=== PATIENT | female | born 1995 | race Hispanic/Latino ===

== ENCOUNTER 2018-07-08 16:10 | Inpatient (IN) | payer OTHER, SELFPAY ==
[2018-07-08 16:52] VITALS: BMI 31.1
[2018-07-08 17:39] LABS: Amnisure Internal Control QC ACCEPTABLE (ACCEPTABLE); Amnisure Test No Membranes Rupture (No Rupture)
--- NOTE | 2018-07-08 19:34 | PDOC.LDHP ---
Labor and Delivery H&P Chief complaint: contractions HPI: 37 wk w increasing ctx. 2 cm yesterday in calcium Current gestational age (weeks): 37 Due date: 07/29/18 Dating criteria: last menstrual period, first trimester ultrasound Grav: 2 Para: 1 ( sool 36wk) Current complications: none Abnormal US findings: No Current medications: none Previous surgical history: none Allergies/Adverse Reactions: Allergies Allergy/AdvReac Type Severity Reaction Status Date / Time No Known Allergies Allergy Unverified 07/08/18 16:50 Social history: none - Physical Exam Vital signs reviewed and normal: yes General: NAD Heart: RRR Lungs: CTAB Abdomen: NTTP Extremeties: no edema FHT: category 1 - Vaginal Exam cm dilated: 4 Effacement: 75% Station: -2 - OB Labs Blood type: A RH: positive Antibody Screen: negative HIV: negative RPR: negative HEPSAg: negative 1 hour GCT: positive 3 hour GTT: negative GBS: negative Urine drug screen: not done Rubella: immune - Assessment L&D Assessment: term patient in labor - Plan Plan: admit to L&D, labor augmentation if indicated (early term sool for admission and augmentation if necessary), anesthesia consult for pain management
[2018-07-08] MEDS ORDERED: Zolpidem Tartrate 5 MG TAB PO PRN (19:44)
[2018-07-08] MEDS ORDERED: Butorphanol Tartrate 1 MG/ML VIAL SLOW IVP PRN (19:44)
[2018-07-08] MEDS ORDERED: Lidocaine 1% (PF) 30 ML VIAL SC PRN (19:44)
[2018-07-08] MEDS ORDERED: NS / Oxytocin 40 units/1000ml 1,000 ML IV PRN (19:44)
[2018-07-08] MEDS ORDERED: Ondansetron PF 4 MG/2 ML Vial IVP PRN (19:44)
[2018-07-08] MEDS ORDERED: HYDROcodone/Acetaminophen 5/325 mg Tablet PO PRN ×2 (19:44)
[2018-07-08] MEDS ORDERED: Promethazine HCl 25 MG/ML VIAL IM PRN (19:44)
[2018-07-08] MEDS ORDERED: Lactated Ringer's 1,000 ML IV SCH (19:45)
[2018-07-08] MEDS ORDERED: NS w/ Oxytocin 10 units 500 ML IV SCH (19:45)
[2018-07-08 20:34] LABS: Hemoglobin 12.7 g/dL (12.0-16.0); Mean Corpuscular HGB CONC 33.3 g/dL (32.0-36.0); Mean Corpuscular Hemoglobin 29.5 pg (27.0-31.0); Mean Corpuscular Volume 88.8 fL (78.0-98.0); Mean Platelet Volume 7.4 fL (7.4-10.4); Platelet Count 272 thou/uL (130-400); White Blood Cell (WBC) Count 8.5 thou/uL (4.8-10.8)
[2018-07-08] MEDS: Lactated Ringer's 1,000 ML IV SCH (21:00)
[2018-07-08 21:13] LABS: Syphilis Antibody Nonreactive (Nonreactive); Syphilis Antibody Index 0.03 S/CO (<1.00 Non-Reactive)
[2018-07-08] MEDS ORDERED: Bupivacaine 0.5% 10 ML VIAL ONE (23:00)
[2018-07-08] MEDS ORDERED: Bupivacaine 0.25% 10 ML VIAL ONE (23:00)
[2018-07-08 23:04] LABS: HBSAg Index 0.26 S/CO (0-0.99); Hep B Surf Ag Non-Reactive S/CO (NonReactive)
[2018-07-09] MEDS: Lactated Ringer's 1,000 ML IV SCH ×2 (03:03→09:05)
[2018-07-09] MEDS ORDERED: Fentanyl 4 mcg/Bup 0.1% Cadd 100 ML ONE (08:29)
[2018-07-09] MEDS ORDERED: Lidocaine 1.5%/Epinephrine 1:200,000 5 ML AMPUL IJ ONE (08:31)
[2018-07-09] MEDS ORDERED: Acetaminophen 325 MG TAB PO PRN (09:13)
[2018-07-09] MEDS ORDERED: Eucerin (Mineral Oil/Petrolatum,White) 30 gm Jar TOP PRN (09:13)
[2018-07-09] MEDS ORDERED: Ondansetron PF 4 MG/2 ML Vial IVP PRN ×2 (09:13→11:13)
[2018-07-09] MEDS ORDERED: Naloxone HCl 0.4 mg/ml Vial IVP PRN ×2 (09:13)
[2018-07-09] MEDS ORDERED: Promethazine HCl 25 MG/ML VIAL IM PRN (09:13)
[2018-07-09] MEDS ORDERED: ePHEDrine/0.9% NaCl/PF SYRINGE 50 mg/10 ml SLOW IVP PRN (09:13)
[2018-07-09] MEDS ORDERED: diphenhydrAMINE 50 MG/ML VIAL IVP PRN (09:13)
[2018-07-09] MEDS ORDERED: Lactated Ringer's 500 ML IV PRN (09:13)
[2018-07-09] MEDS ORDERED: Communication Order-Pharmacy FS SCH (09:15)
[2018-07-09] MEDS ORDERED: Fentanyl 4 mcg/Bupivacaine 0.1% Cassette 100 ML EPIDURAL SCH (09:15)
[2018-07-09] MEDS ORDERED: Preparation H Ointment 28 GM TUBE PR PRN (11:13)
[2018-07-09] MEDS ORDERED: Milk Of Magnesia 30 ML UDCUP PO PRN (11:13)
[2018-07-09] MEDS ORDERED: diphenhydrAMINE 25 MG CAP PO PRN (11:13)
[2018-07-09] MEDS ORDERED: HYDROcodone/Acetaminophen 5/325 mg Tablet PO PRN ×2 (11:13)
[2018-07-09] MEDS ORDERED: NS / Oxytocin 40 units/1000ml 1,000 ML IV SCH (11:13)
[2018-07-09] MEDS ORDERED: Adacel (T-DAP) 0.5 ML SYRINGE IM ONE (11:13)
[2018-07-09] MEDS ORDERED: Benzocaine/Menthol 20-0.5% 60 ML CAN TOP PRN (11:13)
[2018-07-09] MEDS ORDERED: Bisacodyl 10 MG SUPP PR PRN (11:13)
[2018-07-09] MEDS: Ferrous Sulfate 325 MG TAB PO SCH (12:39)
[2018-07-09] MEDS: Ibuprofen 800 MG TAB PO SCH ×2 (13:24→21:03)
[2018-07-09] MEDS: Docusate Calcium (SURFAK) 240 MG CAP PO SCH (21:03)
[2018-07-10] MEDS: Ibuprofen 800 MG TAB PO SCH (05:25)
[2018-07-10 06:51] LABS: Hemoglobin 11.2 g/dL (12.0-16.0); Mean Corpuscular HGB CONC 33.2 g/dL (32.0-36.0); Mean Corpuscular Hemoglobin 29.8 pg (27.0-31.0); Mean Corpuscular Volume 89.9 fL (78.0-98.0); Mean Platelet Volume 6.8 fL (7.4-10.4); Platelet Count 199 thou/uL (130-400); RBC Distribution Width 12.9 % (11.5-14.5); Red Blood Cell (RBC) Count 3.75 mill/uL (4.20-5.40); White Blood Cell (WBC) Count 7.2 thou/uL (4.8-10.8)
[2018-07-10 08:45] VITALS: BP 113/64; TEMP 97.6
[2018-07-10] MEDS ORDERED: Prenatal Vitamin 1 TAB PO SCH (09:00)
[2018-07-10] MEDS: Docusate Calcium (SURFAK) 240 MG CAP PO SCH (09:25)
[2018-07-10] MEDS: Ferrous Sulfate 325 MG TAB PO SCH (09:26)
== END 2018-07-10 14:05 | disposition home or self-care (01) | DRG 807 ==
LOC: L&D/OP 16:10 → L&D 19:43 → 3SW 07-09 12:27
PROVIDERS: ADMIT Family Medicine; ATTEND Family Medicine
PROC: 10E0XZZ Delivery of Products of Conception, External Approach (ICD-10-PCS; principal; 2018-07-09)
PROC: 0HQ9XZZ Repair Perineum Skin, External Approach (ICD-10-PCS; 2018-07-09)
PROC: 10907ZC Drainage of Amniotic Fluid, Therapeutic from Products of Conception, Via Natural or Artificial Opening (ICD-10-PCS; 2018-07-09)
DX: O70.0 First degree perineal laceration during delivery (principal); Z37.0 Single live birth; Z3A.37 37 weeks gestation of pregnancy
CPT/HCPCS: 36415; 84112; 85027; 86780; 86850; 86900; 86901; 87340; 99285; J3490; S0020

== ENCOUNTER 2022-03-08 11:15 | Outpatient (CLI) | payer BC | END 2022-03-08 11:16 | disposition home or self-care (01) | LOC: BICRAD 11:15 | PROVIDERS: ATTEND Family Medicine | DX: R07.81 Pleurodynia (principal) ==